=== PATIENT | female | born 1970 | race African-American/Black ===

== ENCOUNTER 2019-05-18 16:25 | Emergency (ER) | payer OTHER ==
[~2019-05-18] VITALS: Ht 160 cm; Wt 78.9 kg
[~2019-05-18 16:25] MED LIST: AMIT75TA PO; ASPI-630 PO; CYCL10TA2 PO; GABA-585 PO; GABA300C18 PO; HYDR12.58 PO; TRAM50TA PO
[2019-05-18] MEDS ORDERED: ALBUTEROL SULFATE 2.5 MG/3 ML NEBU. NEB ONE (17:30)
[2019-05-18] MEDS ORDERED: HYDROcodone/APAP 5/325MG 1 TAB TABLET PO ONE (17:30)
--- NOTE | 2019-05-18 17:42 | PHYS DOC ---
Past Medical History Past Medical History: Asthma, Fibromyalgia, Hypertension, Migraines Additional Past Medical Histor: Lupus (RITA MALDONADO APRN) Past Surgical History: Other Additional Past Surgical Histo: CARDIAC CATH NO STENTS (RITA MALDONADO APRN) Alcohol Use: None Drug Use: None (RITA MALDONADO APRN) The HEART Score for CP Pts HEART Score for Chest Pain: HEART Score for Chest Pain Response (Comments) Value History Slighlty/Non-Suspicious 0 ECG Normal 0 Age >45 - < 65 1 Risk Factors 1 or 2 Risk Factors 1 Troponin < Normal Limit 0 Total 2 Risk Factors: Risk Factors: DM, Current or recent (<one month) smoker, HTN, HLP, family history of CAD, obesity. Risk Scores: Score 0 - 3: 2.5% MACE over next 6 weeks - Discharge Home Score 4 - 6: 20.3% MACE over next 6 weeks - Admit for Clinical Observation Score 7 - 10: 72.7% MACE over next 6 weeks - Early Invasive Strategies (RITA MALDONADO APRN) Attending Signature I have participated in the care of this patient and I have reviewed and agree with all pertinent clinical information above including history, exam, and recommendations. (SLOAN MALCOLM MD) Adult General Chief Complaint Chief Complaint: SHORTNESS OF BREATH HPI HPI Patient is a 48 year old female who presents with states for the last day she has had a dry cough but is been having right lung pain that is worse when she takes a breath but otherwise continuous. She states it feels like a squeezing or sharp pain. Patient states that she does get short of breath. Patient has a history of asthma and states that she's tried her inhaler but has not been working. Patient denies fever or any other symptoms. Patient rates her pain a 7 out of 10. (RITA MALDONADO APRN) Review of Systems Review of Systems Respiratory: cough or shortness of breath [] Cardiovascular: Right lung pain All other systems were reviewed and found to be within normal limits, except as documented in this note. (RITA MALDONADO APRN) Current Medications Current Medications Current Medications Medications (Trade) Dose Ordered Sig/Evaristo Start Time Stop Time Status Last Admin Dose Admin Acetaminophen/ Hydrocodone Bitart (Lortab 5/325) 1 tab 1X ONCE 05/18/19 17:30 05/18/19 17:31 DC 05/18/19 17:46 1 TAB Albuterol Sulfate (Ventolin Neb Soln) 2.5 mg 1X ONCE 05/18/19 17:30 05/18/19 17:31 DC 05/18/19 17:42 2.5 MG (SLOAN MALCOLM MD) Allergies Allergies Allergies Coded Allergies Type Severity Reaction Last Updated Verified No Known Drug Allergies 08/29/13 No (SLOAN MALCOLM MD) Physical Exam Physical Exam Constitutional: Well developed, well nourished, no acute distress, non-toxic appearance. [] HENT: Normocephalic, atraumatic, bilateral external ears normal, oropharynx moist, no oral exudates, nose normal. [] Eyes: PERRLA, EOMI, conjunctiva normal, no discharge. [] Neck: Normal range of motion, no tenderness, supple, no stridor. [] Cardiovascular:Heart rate regular rhythm, no murmur [] Lungs & Thorax: Bilateral breath sounds clear to auscultation [] Skin: Warm, dry, no erythema, no rash. [] Neurologic: Alert and oriented X 3, normal motor function, normal sensory function, no focal deficits noted. [] Psychologic: Affect normal, judgement normal, mood normal. [] (RITA MALDONADO APRN) Current Patient Data Vital Signs Vital Signs Date Time Temp Pulse Resp B/P (MAP) Pulse Ox O2 Delivery O2 Flow Rate FiO2 05/18/19 18:29 108 139/80 (99) 05/18/19 17:46 96 Room Air 05/18/19 17:14 98.2 24 98.2 (SLOAN MALCOLM MD) Lab Values Laboratory Tests Test 05/18/19 16:40 White Blood Count 10.3 x10^3/uL (4.0-11.0) Red Blood Count 4.73 x10^6/uL (3.50-5.40) Hemoglobin 14.6 g/dL (12.0-15.5) Hematocrit 43.4 % (36.0-47.0) Mean Corpuscular Volume 92 fL (79-100) Mean Corpuscular Hemoglobin 31 pg (25-35) Mean Corpuscular Hemoglobin Concent 34 g/dL (31-37) Red Cell Distribution Width 14.6 % (11.5-14.5) H Platelet Count 290 x10^3/uL (140-400) Neutrophils (%) (Auto) 66 % (31-73) Lymphocytes (%) (Auto) 25 % (24-48) Monocytes (%) (Auto) 8 % (0-9) Eosinophils (%) (Auto) 1 % (0-3) Basophils (%) (Auto) 1 % (0-3) Neutrophils # (Auto) 6.8 x10^3/uL (1.8-7.7) Lymphocytes # (Auto) 2.5 x10^3/uL (1.0-4.8) Monocytes # (Auto) 0.8 x10^3/uL (0.0-1.1) Eosinophils # (Auto) 0.1 x10^3/uL (0.0-0.7) Basophils # (Auto) 0.0 x10^3/uL (0.0-0.2) D-Dimer (Luz Maria) 0.35 ug/mlFEU (0.00-0.50) Sodium Level 143 mmol/L (136-145) Potassium Level 4.5 mmol/L (3.5-5.1) Chloride Level 105 mmol/L (98-107) Carbon Dioxide Level 28 mmol/L (21-32) Anion Gap 10 (6-14) Blood Urea Nitrogen 14 mg/dL (7-20) Creatinine 0.8 mg/dL (0.6-1.0) Estimated GFR (Cockcroft-Gault) 92.6 BUN/Creatinine Ratio 18 (6-20) Glucose Level 95 mg/dL (70-99) Calcium Level 9.7 mg/dL (8.5-10.1) Total Bilirubin 0.2 mg/dL (0.2-1.0) Aspartate Amino Transferase (AST) 19 U/L (15-37) Alanine Aminotransferase (ALT) 20 U/L (14-59) Alkaline Phosphatase 70 U/L (46-116) Troponin I Quantitative < 0.017 ng/mL (0.000-0.055) Total Protein 8.3 g/dL (6.4-8.2) H Albumin 4.0 g/dL (3.4-5.0) Albumin/Globulin Ratio 0.9 (1.0-1.7) L Laboratory Tests 05/18/19 16:40 Laboratory Tests 05/18/19 16:40 (SLOAN MALCOLM MD) Lab Values Laboratory Tests Test 05/18/19 16:40 White Blood Count 10.3 x10^3/uL (4.0-11.0) Red Blood Count 4.73 x10^6/uL (3.50-5.40) Hemoglobin 14.6 g/dL (12.0-15.5) Hematocrit 43.4 % (36.0-47.0) Mean Corpuscular Volume 92 fL (79-100) Mean Corpuscular Hemoglobin 31 pg (25-35) Mean Corpuscular Hemoglobin Concent 34 g/dL (31-37) Red Cell Distribution Width 14.6 % (11.5-14.5) H Platelet Count 290 x10^3/uL (140-400) Neutrophils (%) (Auto) 66 % (31-73) Lymphocytes (%) (Auto) 25 % (24-48) Monocytes (%) (Auto) 8 % (0-9) Eosinophils (%) (Auto) 1 % (0-3) Basophils (%) (Auto) 1 % (0-3) Neutrophils # (Auto) 6.8 x10^3/uL (1.8-7.7) Lymphocytes # (Auto) 2.5 x10^3/uL (1.0-4.8) Monocytes # (Auto) 0.8 x10^3/uL (0.0-1.1) Eosinophils # (Auto) 0.1 x10^3/uL (0.0-0.7) Basophils # (Auto) 0.0 x10^3/uL (0.0-0.2) D-Dimer (Luz Maria) 0.35 ug/mlFEU (0.00-0.50) Sodium Level 143 mmol/L (136-145) Potassium Level 4.5 mmol/L (3.5-5.1) Chloride Level 105 mmol/L (98-107) Carbon Dioxide Level 28 mmol/L (21-32) Anion Gap 10 (6-14) Blood Urea Nitrogen 14 mg/dL (7-20) Creatinine 0.8 mg/dL (0.6-1.0) Estimated GFR (Cockcroft-Gault) 92.6 BUN/Creatinine Ratio 18 (6-20) Glucose Level 95 mg/dL (70-99) Calcium Level 9.7 mg/dL (8.5-10.1) Total Bilirubin 0.2 mg/dL (0.2-1.0) Aspartate Amino Transferase (AST) 19 U/L (15-37) Alanine Aminotransferase (ALT) 20 U/L (14-59) Alkaline Phosphatase 70 U/L (46-116) Troponin I Quantitative < 0.017 ng/mL (0.000-0.055) Total Protein 8.3 g/dL (6.4-8.2) H Albumin 4.0 g/dL (3.4-5.0) Albumin/Globulin Ratio 0.9 (1.0-1.7) L Laboratory Tests 05/18/19 16:40 Laboratory Tests 05/18/19 16:40 (RITA MALDONADO APRN) EKG EKG Sinus Rhythm and no STEMI[] Interpretation Time: [address] Malcolm (RITA MALDONADO APRN) Radiology/Procedures Radiology/Procedures [] (RITA MALDONADO APRN) Impressions: [facility] [address] [place] [address] IMAGING REPORT Signed PATIENT: BREE FARMER ACCOUNT: [id number] : 1970 LOCATION: ER AGE: 48 SEX: F EXAM STATUS: REG ER ORD. PHYSICIAN: RITA MALDONADO APRN REASON: chest pain, cough PROCEDURE: CHEST PA & LATERAL CHEST PA LATERAL History: Chest pain. Cough. Comparison: January 11, 2016 Findings: No consolidation or pleural effusion. Normal heart size. Impression: 1. No acute cardiopulmonary process. Electronically signed by: Chapo Bowden DO (05/18/2019 5:42 PM) [facility] DICTATED and SIGNED BY: CHAPO BOWDEN DO DATE: 05/18/191741 (RITA MALDONADO APRN) Course & Med Decision Making Course & Med Decision Making Patient is a 48 year old female who presents with states for the last day she has had a dry cough but is been having right lung pain that is worse when she takes a breath but otherwise continuous. She states it feels like a squeezing or sharp pain. Patient states that she does get short of breath. Patient has a history of asthma and states that she's tried her inhaler but has not been working. Patient denies fever or any other symptoms. Patient rates her pain a 7 out of 10 and nonradiating. Lungs are clear to auscultation in all lobes. Skin is pink warm and dry. Patient is alert and oriented and ambulatory with a steady gait. No extremity swelling. Patient denies dizziness, headache, visual changes, chest pain, abdominal pain, nausea, vomiting, weakness or numbness or tingling. D-dimer negative, troponin negative, chest x-ray shows no acute findings. Patient states the breathing treatment helped her. Patient states she has a albuterol inhaler at home. Patient diagnosed with Pleurisy. (RITA MALDONADO APRN) Dragon Disclaimer Dragon Disclaimer This electronic medical record was generated, in whole or in part, using a voice recognition dictation system. (RITA MALDONADO APRN) Departure Departure Impression: Primary Impression: Cough Additional Impression: Pleuritic chest pain Disposition: HOME, SELF-CARE Condition: STABLE Referrals: KAREEN MURDOCK (PCP) Patient Instructions: Cough, Adult, Pleurisy Additional Instructions: Follow up with your primary care provider. Take medications as needed. Scripts Albuterol Sulfate (Proair Hfa) 8.5 Gm Hfa.aer.ad 1 PUFF INH PRN Q6HRS PRN for SHORTNESS OF BREATH, #1 INHALER Prov: RITA MALDONADO APRN 05/18/19 Hydrocodone Bit/Acetaminophen (HYDROCODONE-APAP 5-325 ) 1 Tab Tablet 1 TAB PO PRN Q6HRS PRN for PAIN, #10 TAB 0 Refills Prov: RITA MALDONADO APRN 05/18/19 Methylprednisolone (MEDROL) 4 Mg Tab.ds.pk 1 PKG PO UD, #1 PKG Prov: RITA MALDONADO APRN 05/18/19 Problem Qualifiers RITA MALDONADO APRN May 18, 2019 17:42 SLOAN MALCOLM MD May 19, 2019 09:38
--- NOTE | 2019-05-18 17:45 | RAD ---
CHEST PA LATERAL History: Chest pain. Cough. Comparison: January 11, 2016 Findings: No consolidation or pleural effusion. Normal heart size. Impression: 1. No acute cardiopulmonary process. Electronically signed by: Chapo Bowden DO (05/18/2019 5:42 PM) [facility]
[2019-05-18 17:49] LABS: BASO % 1 % (0-3); EOS # 0.1 x10^3/uL (0.0-0.7); EOS % 1 % (0-3); HEMATOCRIT 43.4 % (36.0-47.0); HEMOGLOBIN 14.6 g/dL (12.0-15.5); LYMPH # 2.5 x10^3/uL (1.0-4.8); LYMPH % 25 % (24-48); MEAN CORPUSCULAR HEMOGLOBIN 31 pg (25-35); MEAN CORPUSCULAR HGB CONC 34 g/dL (31-37); MEAN CORPUSCULAR VOLUME 92 fL (79-100); MONO # 0.8 x10^3/uL (0.0-1.1); MONO % 8 % (0-9); NEUT # 6.8 x10^3/uL (1.8-7.7); NEUT % 66 % (31-73); PLATELET COUNT 290 x10^3/uL (140-400); RED BLOOD COUNT 4.73 x10^6/uL (3.50-5.40); RED CELL DISTRIBUTION WIDTH 14.6 % (11.5-14.5); WHITE BLOOD COUNT 10.3 x10^3/uL (4.0-11.0)
[2019-05-18 18:01] LABS: CALCIUM 9.7 mg/dL (8.5-10.1); CREATININE 0.8 mg/dL (0.6-1.0); GFR 92.6; POTASSIUM 4.5 mmol/L (3.5-5.1)
[2019-05-18 18:07] LABS: ALBUMIN/GLOBULIN RATIO 0.9 (1.0-1.7); TOTAL BILIRUBIN 0.2 mg/dL (0.2-1.0); TOTAL PROTEIN 8.3 g/dL (6.4-8.2)
[2019-05-18] MEDS ORDERED: HYDR-2761 PO (18:23)
[2019-05-18] MEDS ORDERED: METH4TAB2 PO (18:23)
[2019-05-18] MEDS ORDERED: ALBU2.5V8 INH (18:28)
[2019-05-18 18:29] VITALS: BP 139/80
--- NOTE | 2019-05-20 11:38 | EKG ---
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
== END 2019-05-18 18:59 | disposition home or self-care (01) ==
LOC: ER 16:25
DX: R05 Cough (principal); R07.81 Pleurodynia; J45.909 Unspecified asthma, uncomplicated; I10 Essential (primary) hypertension; G43.909 Migraine, unspecified, not intractable, without status migrainosus
CPT/HCPCS: 36415; 71046; 80053; 84484; 85025; 85379; 93005; 94640; 99285; J7613